=== PATIENT | female | born 1960 | race Caucasian/White ===

== ENCOUNTER 2016-06-30 10:07 | Emergency (ER) | payer OTHER ==
[~2016-06-30] VITALS: Ht 157.5 cm; Wt 105.9 kg
[2016-06-30 10:09] VITALS: BP 149/82; PULSE 119; RESP 18; O2SAT 93
--- NOTE | 2016-06-30 10:22 | ED.REPORT ---
HPI-Abd Pain F 40 and Over Date of Service Jun 30, 2016 ED Provider: Ann Almanza MD Patient is a 55 year old female who presents to the ED from due to 103.4F fever onset yesterday. She was seen five days ago at and was diagnosed with llanes sensitive e-coli and was started on SULFA . A CT KUB revealed a small 2 mm stone in the bladder. Along with the kidney stone she was experiencing very severe left flank pain which has since resolved. Associated symptoms include gas , diarrhea, malaise, lower back pain tachycardia and states that it, "doesn't feel like she has a UTI anymore." She denies cold symptoms. It feels like her UTI is currently resolved. Her boss at work has the flu. Patient is normally very healthy. Records are available from and reviewed. Pt had ibuprofen boat captain. Nursing Notes Stated Complaint: FEVER/POSSIBLE UTI Chief Complaint: Female Abdominal Pain Nursing Notes Reviewed: Yes Allergies: Coded Allergies: No Known Allergies (Verified , 03/01/15) General Time Seen by MD: 10:21 Chief Complaint Other (fever) Hx Obtained From: Patient Arrived By: Walk-in Sudden in Onset?: Yes Onset Occurred: Yesterday Symptom Duration: Since onset Recent Healthcare: Recent doctor visit Similar Sx Previous: Yes Past Medical History Past Medical History No prior history of DVT or PE kidney stones Reports: Urinary tract infection Smoking History Never Smoker Social History Drug Use: Denies drug use Other Social History: , Local resident Ambulatory Status Independent Review of Systems tachycardia Constitutional: Reports: Fever, Malaise Respiratory: Denies: Non-productive cough GI: Reports: Diarrhea Musculoskeletal: Reports: Back pain Complete sys rev & neg: except as marked. Ears / Nose / Throat: Denies: Nasal congestion Physical Exam Vital Signs Vital Signs (First) Date Time Temp Pulse Resp B/P Pulse Ox O2 Delivery O2 Flow Rate FiO2 06/30/16 10:09 36.5 119 18 149/82 93 Room Air Initial VS: Reviewed Head / Eyes: Atraumatic, Normocephalic, PERRL ENT: Mucous membranes moist, Conjunctiva normal, No scleral icterus Neck: Supple, Non-tender, Full range of motion Skin: Warm, Dry, No cyanosis Neurologic: Alert, Oriented, Nonfocal Psychiatric: Mood/affect normal, Behavior normal, Normal thought content General/Constitutional: Awake, Alert, Cooperative, Not toxic appearing Respiratory / Chest: Atraumatic, Breath sounds NL, Breath sounds = bilat, No respiratory distress, No rales, No rhonchi, No wheezing, No retractions Cardiovascular: Heart sounds NL, No gallop, No murmurs, No rubs Heart Rate / Rhythm: Positive: Tachycardia Tenderness/Guarding/Rebound: Positive: Tender LLQ... periumbilical pain LLQ pain which is usual hernia pain Back: Atraumatic, Inspection NL, Full range of motion, No CVA tenderness Lower Extremity / Pelvis / MS: Atraumatic, Inspection NL, Full range of motion , No swelling, No edema Interpretation & Diagnostics Interpretation & Diagnostics: CT PROCEDURE IMPRESSION: 1. No nephrolithiasis or hydronephrosis. Recently noted stone within the urinary bladder has passed. No source of fever seen. 2. Fat filled ventral hernias as before. Dictated by: Yoan Jimenez M.D. on 06/30/2016 at 11:42 Approved by: Yoan Jimenez M.D. on 06/30/2016 at 11:47 Lab Results Interpretation Result Diagram: 06/30/16 1050 06/30/16 1050 Test 06/30/16 10:50 White Blood Count 4.8th/mm3 (3.8-10.1) Red Blood Count 4.86mil/mm3 (3.90-5.20) Hemoglobin 14.9g/dL (12.0-15.6) Hematocrit 43.3% (35.0-46.0) Mean Corpuscular Volume 89.1fL (81-100) Mean Corpuscular Hemoglobin 30.7pg (27.0-35.0) Mean Corpuscular Hemoglobin Concent 34.4% (32.0-37.0) Red Cell Distribution Width 12.2% (12.3-15.4) Platelet Count 219bil/L (150-400) Neutrophils (%) (Auto) 80.2% (40-74) Lymphocytes (%) (Auto) 7.5% (14-46) Monocytes (%) (Auto) 7.1% (4-12) Eosinophils (%) (Auto) 5.2% (0-5) Basophils (%) (Auto) 0% (0-3) Sodium Level 136mEq/L (134-144) Potassium Level 4.1mEq/L (3.5-5.2) Chloride Level 101mEq/L (97-108) Carbon Dioxide Level 22mmol/L (18-29) Blood Urea Nitrogen 8mg/dL (6-24) Creatinine 1.25mg/dL (0.57-1.00) Estimat Glomerular Filtration Rate 64mL/min (>59) Glucose Level 156mg/dL (60-99) Lactic Acid Level 1.7mmol/L (0.4-2.0) Calcium Level 8.9mg/dL (8.5-10.1) Magnesium Level 2.0mg/dL (1.6-2.6) Total Bilirubin 0.8mg/dL (0.0-1.2) Aspartate Amino Transf (AST/SGOT) 46U/L (0-50) Alanine Aminotransferase (ALT/SGPT) 54U/L (0-32) Alkaline Phosphatase 105U/L (25-150) Total Protein 7.7g/dL (6.4-8.4) Albumin 4.1g/dL (3.4-5.0) Lipase 22U/L (13-60) Re-Eval/Medical Decision Med Decision/Clinical Course history of pansensitive Escherichia coli infection treated with Septra on Thursday. Some diarrhea after starting the Septra, given timing suspect that this is a direct reaction to the Septra rather than significant concern for C. difficile. Noted to have a 2 mm left renal stone. Fevers measured to 103 at home yesterday and comes in for reevaluation. Labs are reassuring with a normal white count. No diarrhea while in the emergency department. Does not feel that she has any urinary symptoms remaining will send urine for culture. Repeat CT KUB shows the stone has passed and no evidence of hydronephrosis. At this point reassurance is given last return if she feels that things are worsening Re-Evaluation/Progress : Time of Eval: 12:25 )( Re-Eval Abdomen: Soft, Non-tender, No guarding, No rebound Patient Status: Condition improved Counseled Regarding: Diagnosis, Lab results, Need for follow-up, When/why to return to ED Discharge & Departure Primary Impression: Fever Fever type: unspecified Qualified Code: R50.9 - Fever, unspecified Additional Impression: UTI (urinary tract infection) Urinary tract infection type: site unspecified Hematuria presence: without hematuria Qualified Code: N39.0 - Urinary tract infection, site not specified Ruled Out: Pyelonephritis, Renal and ureteric calculus Disposition: Home Discharge Condition All VS Reviewed: Yes Condition: Stable Additional Instructions: Your labs, CT scan and urine are all very reassuring today. I do not find any evidence for a severe infection, kidney infection, or infected kidney stone. I suspect that the Septra that you used to appropriately treat your bladder infection has caused some diarrhea. I do not see any severe side effects from that diarrhea yet. It is safe for you to go home. I am not going to recommend any additional treatment at this point. Please make sure you are well hydrated,. If you continue to have fevers, have worsening abdominal pain, any new findings otherwise, please return to the emergency department. I'm glad the work up has been reassuring today. Referrals: Tona Gomes MD (PCP) Scribe Attestation Portion of this note were transcribed by Shy Fernandez. I, Dr. Almanza, personally performed the history, physical exam, and medical decision-making: I reviewed and confirmed the accuracy for the information in the transcribed note. Signed by: elida Vaca, 06/30/16 1300 copies to: Tona Gomes MD, Shawna L MD Jun 30, 2016 10:22 SHY FERNANDEZ Jun 30, 2016 10:42
[2016-06-30] MEDS ORDERED: 0.9% Sodium Chloride 1,000 ML IV ONE (10:41)
[2016-06-30] MEDS ORDERED: cefTRIAXone Inj 2,000 MG in Dextrose 5% Minibag Plus 50 ML IV ONE (10:45)
[2016-06-30 10:59] LABS: BASOPHILS % (AUTO) 0 % (0-3); EOSINOPHILS % (AUTO) 5.2 % (0-5); MONOCYTES % (AUTO) 7.1 % (4-12); Mean Corpuscular Hemoglobin 30.7 pg (27.0-35.0); Mean Corpuscular Volume 89.1 fL (81-100); NEUTROPHILS % (AUTO) 80.2 % (40-74); Platelet Count 219 bil/L (150-400)
--- NOTE | 2016-06-30 11:48 | DRSVH ---
PROCEDURE: CT KUB ([id number]) INDICATIONS: fever, kidney stone TECHNIQUE: Noncontrast 5 mm thick sections acquired from the diaphragms to the symphysis. 5 mm thick coronal an d sagittal reformats were then performed. For radiation dose reduction, the following was used: aut omated exposure control, adjustment of mA and/or kV according to patient size. COMPARISON: CT KUB 06/25/2016 FINDINGS: Image quality: Excellent. Lung bases: Lung bases are clear. Heart size is normal. Urinary system: Both kidneys are normal in size. No kidney stones. No hydronephrosis. There remain s a small amount of periureteric fat stranding on the left. Both ureters appear non-dilated throughou t their expected courses. Bladder wall thickness is normal; no calcified bladder stones, bladder sto ne on prior exam having passed. Other solid organs: Liver and spleen are normal in size. Gallbladder appears normal. Pancreas is n ormal in contours. No adrenal nodules. Peritoneum and bowel: Unenhanced bowel loops demonstrate normal wall thickness and caliber. Normal a ppendix. No free fluid or air. Nodes and vessels: No retroperitoneal or mesenteric adenopathy by size criteria. Aorta and inferior vena cava are normal in caliber. Abdominal wall: Large fat filled left ventral hernia is reidentified. Fat filled umbilical hernia aga in seen. Pelvis: No free pelvic fluid. No inguinal hernias or adenopathy. Uterus and ovaries are unremarkabl e. Bones: No suspicious bony lesions. No vertebral body compression fractures. IMPRESSION: 1. No nephrolithiasis or hydronephrosis. Recently noted stone within the urinary bladder has passed. No source of fever seen. 2. Fat filled ventral hernias as before. Dictated by: Yoan Jimenez M.D. on 06/30/2016 at 11:42 Approved by: Yoan Jimenez M.D. on 06/30/2016 at 11:47
[2016-06-30 14:08] LABS: APPEARANCE,URINE HAZY (CLEAR,HAZY); COLOR,URINE YELLOW (YELLOW); OCCULT BLOOD,URINE NEGATIVE (NEGATIVE); UROBILINOGEN,URINE NORMAL (NORMAL)
== END 2016-06-30 13:07 | disposition home or self-care (01) ==
LOC: SED 10:07
DX: N39.0 Urinary tract infection, site not specified (principal); R50.9 Fever, unspecified; Z87.442 Personal history of urinary calculi
CPT/HCPCS: 36415; 74176; 80053; 81000; 83605; 83690; 83735; 85025; 87040; 96361; 96365; 99285; J0696; J7030